=== PATIENT | male | born 1955 | race Caucasian/White ===

== ENCOUNTER 2020-04-16 00:12 | Emergency (ER) | payer SELFPAY ==
--- NOTE | 2020-04-16 00:51 | EDM.PDOC ---
ED HPI GENERAL MEDICAL PROBLEM - General Chief Complaint: Upper Extremity Injury/Pain Stated Complaint: HURT SHOULDER, FALL Time Seen by Provider: 04/16/20 00:46 Source of Information: Reports: Patient History Limitations: Reports: No Limitations - History of Present Illness INITIAL COMMENTS - FREE TEXT/NARRATIVE: 65-year-old male with history of alcohol use presents with left shoulder pain after a fall to his left shoulder in the hotel. He denies hitting his head, he denies headache or neck pain, chest pain, shortness of breath, abdominal pain. His pain in his left shoulder is localized to the anterior rotator cuff, it is worse with shoulder flexion. ROS: A 10-point review of systems, other than pertinent positives and negatives as stated per HPI, is otherwise negative PHYSICAL EXAM General: AOx4, GCS = 15, No distress, clincally sober. HEENT: dry mucous membrane, NC/AT Neck: supple, no meningismus, no Kernig or Brudzinski Cardiac: S1S2 RRR Respiratory: CTAB, no crackles or rales, no wheezing Abdomen: Soft, nontender, no rebound or guarding, nondistended, no pulsatile mass. Back: nontender to C/T/L spine. Musculoskeletal: NVI distally, no deformity, left shoulder tenderness with shoulder flexion, tenderness at the anterior rotator cuff Neuro: No focal deficits MEDICAL DECISION MAKING: I reviewed the patients past medical records, lab and radiographic findings. I discussed the case with family members. My differential diagnosis included: Rotator cuff tendinitis, fracture, dislocation. Patient did not hit his head, I do not suspect he needs CT imaging of his brain. He has no complaint of neck pain. He has no complaints of chest pain, I do not suspect ACS. Left Shoulder Pain Score (Numeric/FACES): 9 - Related Data Allergies Allergy/AdvReac Type Severity Reaction Status Date / Time No Known Allergies Allergy Verified 04/16/20 00:19 Home Meds: Home Meds Acetaminophen [Tylenol Arthritis Pain] 650 mg PO Q8H PRN #14 tab.er 04/16/20 [Rx] Ibuprofen [Motrin] 800 mg PO DAILY 04/16/20 [History] Losartan [Cozaar] 100 mg PO DAILY 04/16/20 [History] Omeprazole 40 mg PO DAILY 04/16/20 [History] hydroCHLOROthiazide [Hydrochlorothiazide] 25 mg PO DAILY 04/16/20 [History] Past Medical History Cardiovascular History: Reports: Hypertension Respiratory History: Reports: COPD Gastrointestinal History: Reports: Chronic Diarrhea, Hemorrhoids Musculoskeletal History: Reports: Fracture Other Musculoskeletal History: facial fx, neck and back fx. Neurological History: Reports: Other (See Below) Other Neuro History: tremors Psychiatric History: Reports: Depression Endocrine/Metabolic History: Reports: None Hematologic History: Reports: None Oncologic (Cancer) History: Reports: Prostate Dermatologic History: Reports: None - Infectious Disease History Infectious Disease History: Reports: Chicken Pox - Past Surgical History Head Surgeries/Procedures: Reports: None HEENT Surgical History: Reports: Adenoidectomy, Tonsillectomy Other HEENT Surgeries/Procedures: facial reconstruction GI Surgical History: Reports: Cholecystectomy Male Surgical History: Reports: Prostatectomy Other Musculoskeletal Surgeries/Procedures:: face, neck and back sx Social & Family History - Tobacco Use Smoking Status *Q: Current Every Day Smoker Years of Tobacco use: 50 Packs/Tins Daily: 1 - Recreational Drug Use Recreational Drug Use: No Review of Systems - Review of Systems Review Of Systems: See Below (see dictation) ED EXAM, GENERAL - Physical Exam Exam: See Below (see dictation) Course - Vital Signs Last Recorded V/S: Last Vital Signs Temp 96.8 F L 04/16/20 00:16 Pulse 88 04/16/20 00:16 Resp 18 04/16/20 00:16 BP 118/79 04/16/20 00:16 Pulse Ox 96 04/16/20 00:16 - Orders/Labs/Meds Orders: Active Orders 24 hr Category Date Time Status DME for Discharge [COMM] Stat Oth 04/16/20 00:45 Ordered Meds: Medications Discontinued Medications Generic Name Dose Route Start Last Admin Trade Name Tobi PRN Reason Stop Dose Admin Al Hydroxide/Mg Hydroxide 15 0 ml 04/16/20 00:56 04/16/20 01:18 ml/ Metoclopramide HCl 5 mg/ PO 04/16/20 00:57 1 each Lidocaine HCl 5 ml ONETIME ONE Administration - Re-Assessments/Exams Free Text/Narrative Re-Assessment/Exam: 04/16/20 00:49 After treatments and a prolonged observation period in the ER, the patient im proved clinically and is stable for discharge. I performed a repeat examination and the patient has not demonstrated any new abnormal findings. Patient exhibits normal vital signs and is clinically sober for discharge. He exhibits a normal gait. Patient was placed in a sling and is NVI distally. I advised the patient to return to the ER for reevaluation if symptoms worsened, and to follow up wit h their PCP within 2-3 days. Departure - Departure Time of Disposition: 01:22 Disposition: Home, Self-Care 01 Condition: Good Clinical Impression: Rotator cuff tendinitis, Shoulder pain - Discharge Information *PRESCRIPTION DRUG MONITORING PROGRAM REVIEWED*: Not Applicable *COPY OF PRESCRIPTION DRUG MONITORING REPORT IN PATIENT ALEX: Not Applicable Prescriptions: Acetaminophen [Tylenol Arthritis Pain] 650 mg PO Q8H PRN #14 tab.er PRN Reason: Pain Instructions: Shoulder Pain, How to Use Cold Therapy, [id number], How To Use a Sling, [id number] Forms: ED Department Discharge Additional Instructions: The following information is given to patients seen in the emergency department who are being discharged to home. This information is to outline your options for follow-up care. We provide all patients seen in our emergency department with a follow-up referral. The need for follow-up, as well as the timing and circumstances, are variable depending upon the specifics of your emergency department visit. If you don't have a primary care physician on staff, we will provide you with a referral. We always advise you to contact your personal physician following an emergency department visit to inform them of the circumstance of the visit and for follow-up with them and/or the need for any referrals to a consulting specialist. The emergency department will also refer you to a specialist when appropriate. This referral assures that you have the opportunity for follow-up care with a specialist. All of these measure are taken in an effort to provide you with optimal care, which includes your follow-up. Under all circumstances we always encourage you to contact your private physician who remains a resource for coordinating your care. When calling for follow-up care, please make the office aware that this follow-up is from your recent emergency room visit. If for any reason you are refused follow-up, please contact the [facility] Emergency Department at and asked to speak to the emergency department charge nurse. [facility] Professional [address], [address] [place] [address] Sepsis Event Note (ED) - Evaluation Sepsis Screening Result: No Definite Risk - Focused Exam Vital Signs: Vital Signs Temp Pulse Resp BP Pulse Ox 04/16/20 00:16 96.8 F L 88 18 118/79 96 - My Orders Last 24 Hours: My Active Orders 04/16/20 00:45 DME for Discharge [COMM] Stat - Assessment/Plan Last 24 Hours: My Active Orders 04/16/20 00:45 DME for Discharge [COMM] Stat
[2020-04-16] MEDS ORDERED: Alum Hydrox/Mag Hydrox/Simeth 15 ML, Metoclopramide 5 MG, Lidocaine 2% 5 ML PO ONE ×3 (00:56)
--- NOTE | 2020-04-16 01:15 | CR ---
INDICATION: FALL, LEFT SHOULDER PAIN TECHNIQUE: Left shoulder 3 views. COMPARISON: None. FINDINGS: Bones: Alignment is normal. No fractures or bone lesions. Joint spaces: Unremarkable. Soft tissues: Unremarkable. IMPRESSION: Unremarkable left shoulder. Dictated by: Danilo Hunter MD @ 04/16/2020 01:14:41 (Electronically Signed)
[2020-04-16] MEDS ORDERED: Naproxen 500 MG Tab PO ONE (01:33)
[2020-04-16] MEDS ORDERED: Naproxen 500 MG Tab ONE (01:35)
== END 2020-04-16 01:36 | disposition home or self-care (01) ==
LOC: MW.ED 00:12
DX: S46.012A Strain of muscle(s) and tendon(s) of the rotator cuff of left shoulder, initial encounter (principal); J44.9 Chronic obstructive pulmonary disease, unspecified; F17.210 Nicotine dependence, cigarettes, uncomplicated; Z79.899 Other long term (current) drug therapy; W19.XXXA Unspecified fall, initial encounter; Y92.59 Other trade areas as the place of occurrence of the external cause
CPT/HCPCS: 73030; 99283; A9270